=== PATIENT | male | born 1960 | race African-American/Black ===

== ENCOUNTER → 2016-10-11 | Day surgery (SDC) | payer MEDICARE, OTHER ==
[~2016-10-11] MED LIST: NO MEDICATIONS
--- NOTE | ~2016-10-11 | OR ---
Unit #: [id number] #: [id number] Patient: TREVOR ELLER [id number] [address] [address] [id number] O MR#: [id number] NAME: TREVOR ELLER ROOM: Date of Procedure: 10/11/2016 Admission Date: 10/11/2016 Surgeon: Eduar Jacob M.D. : 1960 Attending Physician: Eduar Jacob M.D. Referring Physician: Eduar Jacob M.D. OPERATIVE REPORT PROCEDURES PERFORMED Colonoscopy with snare polypectomy. INDICATIONS A 56-year-old presented here with colon polyps in the past, undergoing surveillance for colonoscopy. MEDICATIONS Monitored anesthesia. POSTOPERATIVE FINDINGS Polyps x2 in ascending colon. Polyps x1 in the sigmoid colon. Prep was extremely poor by extensive lavaging. PLAN Repeat colonoscopy in 3 years. Follow up on pathology report. DESCRIPTION OF PROCEDURE The patient was explained of the procedure, risks, and benefits with risk and benefits of anesthesia. He was brought to the endoscopy room. Propofol anesthesia was given. Rectal exam was done, which was normal. Colonoscope was lubricated, passed up the rectum, advanced under direct vision all the way to the cecum. Cecum was identified by the ileocecal valve and appendiceal orifice. I then started to pull the scope out carefully looking two polyps were seen in ascending and one in the sigmoid colon. They were snared and sent for pathology. I retroflexed in the rectum, small hemorrhoid seen. Scope was gently pulled out. He tolerated it well. Dictated by... Ashley Ohara/román TD: 10/12/2016 14:04 JOB #: [id number] Unit #: [id number] #: [id number] Patient: TREVOR ELLER OPERATIVE REPORT Page 1 of 1 X Eduar Jacob MD X PROCEDURE OPERATIVE NOTE
== END | disposition home or self-care (01) ==
LOC: COPS 09-18 10:00
DX: Z12.11 Encounter for screening for malignant neoplasm of colon (principal); D12.2 Benign neoplasm of ascending colon; K63.5 Polyp of colon; Z86.010 Personal history of colon polyps
CPT/HCPCS: 88305; J2250